=== PATIENT | male | born 1945 | race Caucasian/White ===

== ENCOUNTER 2017-09-14 17:27 | Inpatient (IN) | payer OTHER ==
[~2017-09-14] VITALS: Ht 180.3 cm; Wt 119.3 kg
[2017-09-14] MEDS ORDERED: ASPIR 8181 MG PO (18:03)
[2017-09-14] MEDS ORDERED: ATORVASTATIN CA40 MG PO (18:03)
[2017-09-14] MEDS ORDERED: LANTUS SUBQ (18:04)
[2017-09-14] MEDS ORDERED: NEURONTIN600 MG PO (18:05)
[2017-09-14] MEDS ORDERED: VOLTAREN GEL 1100 G2 TOP (18:05)
[2017-09-14] MEDS ORDERED: COZAAR 50 MG TA50 M2 PO (18:07)
[2017-09-14] MEDS ORDERED: PRILOSEC10 MG PO (18:08)
[2017-09-14] MEDS ORDERED: ALDACTONE25 MG PO (18:09)
[2017-09-14] MEDS ORDERED: CARAFATE 1 GM TA1 G1 PO (18:10)
[2017-09-14] MEDS ORDERED: TRAMADOL 50 MG50 MG PO (18:11)
[2017-09-14] MEDS ORDERED: NORVASC10 MG PO (18:11)
[2017-09-14] MEDS ORDERED: VITAMIN B-12500 MCG PO (18:12)
[2017-09-14] MEDS ORDERED: PLAVIX 75 MG TA75 M1 PO (18:12)
[2017-09-14] MEDS ORDERED: TOPROL XL100 MG PO (18:14)
[2017-09-14] MEDS ORDERED: LEVOXYL75 MCG PO (18:14)
[2017-09-14] MEDS ORDERED: KLOR-CON 1010 MEQ PO (18:15)
[2017-09-14] MEDS ORDERED: OMEGA-31000 M1 PO (18:15)
--- NOTE | 2017-09-14 22:00 | NUR ---
ASSUMED CARE OF PT UPON ADMISSION TO UNIT. PT ALERT AND ORIENTED, POLITE AND COOPERATIVE WITH CARES. PT S/P CVA. PT ANSWERED ADMISSION QUESTIONS WITHOUT DIFFICULTY, OCCASIONALLY NEEDING EXTRA TIME. PT TO BED FROM RECLINER WITH ASSIST OF 2, GAIT BELT AND WALKER. ADMISSION DATABASES COMPLETED. BED ALARM ON FOR SAFETY. HOURLY ROUNDING IN PROGRESS.
[2017-09-15 04:46] LABS: HEMATOCRIT 41.4 % (42.0-52.0); HEMOGLOBIN 13.9 gm/dL (14.0-18.0); MCH 29.5 pg (26.0-34.0); MCHC 33.6 g/dL (28.0-37.0); MCV 87.7 fL (80.0-100.0); MPV 8.5 fl. (7.2-11.1); RBC 4.72 mil/uL (4.50-6.00); RDW-CV 13.5 % (10.5-14.5); WBC 9.4 thou/uL (4.0-11.0)
[2017-09-15 05:07] LABS: CALCIUM 8.5 mg/dL (8.5-10.1); CREATININE 1.5 mg/dL (0.6-1.3); POTASSIUM 3.7 mmol/L (3.5-5.1)
[2017-09-15 08:39] VITALS: BP 139/98
--- NOTE | 2017-09-15 11:14 | NUR ---
Nutrition: Consult for new Rehab admit. Admitted with CVA - multiple mini strokes. Wt: 268#. CHO controlled diet. Pt stated he is eating well, feeling well. BG 165-147. Pt denied any concerns questions about nutrition. Appears at low risk. Will follow weekly.
--- NOTE | 2017-09-15 13:48 | NUR ---
INITIAL ASSESSMENT: PATIENT ADMITTED TO INPATIENT REHAB ON 09/14/2017 WITH A DIAGNOSIS OF CVA. PRIOR TO ADMISSION PATINET ABLE TO PERFORM NURSE EXAMINER AND DROVE. PATIENT RESIDES AT HOME WITH . PATIENTS HOME CURRENTLY HAS 20 STEPS TO THE ENTRY, 3 STEPS TO THE MAIN LEVEL WHERE THE KITCHEN, BATHROOM, AND LIVING ROOM ARE LOCATED, AND 12 STEPS UP TO WHERE THE BEDROOM AND BATHROOM ARE LOCATED. PATIENT OWNS A CANE, BUT DID NOT USE PRIOR TO ADMISSION. PATIENT HAS NO HX OF OR SNF. PATIENT PLANS TO RETURN HOME AT DISCHARGE AND MAY NEED AT WALKER AT THAT TIME. CM CONTACTED THE PATIENTS AND SHE INFORMS THAT SHE IS IN THE PROCESS OF MOVING THEIR BELONGINGS INTO A HOME BETTER SUITED TO HERS AND THE PATIENTS NEEDS AND ONE WITH NO STEPS. CM INFORMED PATIENT AND HIS OF ROLE OF CM, REHAB PROCESS, REISDENTS RIGHTS INFO, AND TEAM CONFRENCE. CM WILL REMAIN AVAILABLE TO ASSIST AND FOLLOW NEEDED. TO INFORM OF THE ROLE OF CM, REHAB
--- NOTE | 2017-09-15 17:06 | NUR ---
PT HAS PARTICIPATED WITH THERAPIES AND AMBULATES WELL WITH WALKER AND MIN ASSIST OF 1. PT NEEDS MOD ASSIST TO COME TO STANDING. PT HAS BEEN ALERT AND APPROPIATE AND DENIES PAIN OR NAUSEA. PT EATS MEALS IN DINNINGROOM. PT CALLS FOR ASSIST TO BATHROOM AND VOIDS WELL STANDING.PT HAS BEEN UP TO RECLINER THIS AFTERNOON WITH LEGS ELEVATED.PT PROGRESSESD TOWARDS GOALS AND HOURLY CONTINUES.
[2017-09-15 20:15] VITALS: BP 132/83
--- NOTE | 2017-09-15 20:15 | NUR ---
SITTING UP IN RECLINER SLEEPING. AWAKENED FOR HS REASSESSMENT AND MED PASS. DENIES DISCOMFORT. TOOK MEDS WHOLE TWO AT A TIME WITH WATER. SNACK PROVIDED.
--- NOTE | 2017-09-16 05:47 | NUR ---
WHEN ASSISTED PT TO BED LAST NIGHT PT WAS VERY LETHARGIC. REQUIRED MAX ASSIST OF TWO, GAITBELT, WALKER, CUEING TO CLINICAL EDITOR RIGHT LEG TO TRANSFER FROM RECLINER TO THE BED. PT RESTED VERY SOUNDLY FOR A FEW HOURS THEN WAS AWAKE ON/OFF THE REMAINDER OF THE NIGHT. C/O LEFT FOOT PAIN THIS AM. DIDN'T WANT ANY PAIN MED. STATES RELIEF WITH THE VOLTAREN GEL. USED URINAL X 2 DURING THE NIGHT. HOURLY ROUNDING IN PROGRESS.
[2017-09-16 07:58] VITALS: BP 160/83
--- NOTE | 2017-09-16 16:49 | NUR ---
ASSUMED CARE AT 0730 PATIENT ALERT/ORIENTED, FORGETFUL AT TIMES, NO COMPLAINTS OF PAIN THIS SHIFT, UP WITH ASSIST OF ONE AND WALKER/GAIT BELT, TO DINING ROOM FOR MEALS, HOURLY ROUNDING COMPLETED, PARTICIPATED IN ALL THERAPIES, BED/CHAIR ALARMS IN PLACE. CALL LIGHT IN REACH. CONTINUE WITH CURRENT PLAN OF CARE
[2017-09-16 20:20] VITALS: BP 153/71
--- NOTE | 2017-09-16 20:25 | NUR ---
SITTING UP IN RECLINER SLEEPING. AWAKENED FOR HS REASSESSMENT AND MED PASS. TOOK MEDS WHOLE TWO AT A TIME WITH WATER. TRANSFERRED FROM RECLINER TO BED WITH MOD ASSIST OF TWO, GAITBELT, WALKER, CUEING. STAFF LIFTED LEGS INTO BED. CALL LIGHT AND URINAL WITHIN REACH.
--- NOTE | 2017-09-17 06:20 | NUR ---
RESTED SOUNDLY UNTIL ABOUT MIDNIGHT THEN SLEPT ON/OFF. PT REQUIRED REORIENTATION TO TIME SEVERAL TIMES. PT KEPT THINKING IT WAS TIME TO GET UP AND GET DRESSED. INCONTINENT OF URINE X ONE. SONYA CARE PROVIDED. USED URINAL X 3. HOURLY ROUNDING IN PROGRESS.
[2017-09-17 08:01] VITALS: BP 152/70
--- NOTE | 2017-09-17 17:08 | NUR ---
ASSUMED CARE AT 0730 PATIENT ALERT/ORIENTED, FORGETFUL, UP WITH ASSIST OF ONE AND WALKER/GAIT BELT, TO DINING ROOM FOR MEALS, PARTICIPATED IN ALL THERAPIES, HOURLY ROUNDING COMPLETED, NO COMPLAINTS OF PAIN, BED/CHAIR ALARMS IN PLACE, CALL LIGHT IN REACH, CONTINUE WITH CURRENT PLAN OF CARE
[2017-09-17 19:35] VITALS: BP 146/67
--- NOTE | 2017-09-17 19:35 | NUR ---
SITTING UP IN RECLINER AND WATCHING TV. DENIES DISCOMFORT. TRANSFERRED FROM RECILNER TO BED WITH MOD ASSIST OF 2, GAITBELT, WALKER, CUEING. SOME LIFTING ASSIST WITH GETTING LEGS INTO BED. PT NOT MOTIVATED. NEEDS ENCOURAGEMENT TO DO MUCH HE CAN FOR HIMSELF. TOOK MEDS WHOLE TWO AT A TIME WITH WATER.
--- NOTE | 2017-09-18 05:27 | NUR ---
RESTED QUIETLY. NO COMPLAINTS VOICED. USED URINAL X 2 DURING THE NIGHT. HOURLY ROUNDING IN PROGRESS.
[2017-09-18 07:36] VITALS: BP 156/69
--- NOTE | 2017-09-18 16:56 | NUR ---
ASSUMED CARE AT 0730. ALERT ORIENTED PLEASANT COOPERATIVE. HX OF CVA WITH RT. WEI. TRANSFERS WITH SBA G BELT WALKER AND SOME CUES FOR SAFETY. USING CALL LIGHT APPROPRIATELY FOR ASSIST. BED CHAIR ALARM FOR PT. SAFETY. FEEDS SELF AND TAKES MEDS WITHOUT DIFFICULTY. APPETITE GOOD. FAMILY HERE VISITING FROM LUNCH TO LATER AFTERNOON FOOD BROUGHT FROM HOME FOR LUNCH MEAL PER . REQUESTED PRN VOLTAREN GEL L FOOT TOES AND TOP OF FOOT FOR PAIN. VOIDS PER URINAL. UP IN RECLINER IN ROOM VISITING WITH FAMILY IN ROOM AND DINING ROOM.
[2017-09-18 19:30] VITALS: BP 171/79
--- NOTE | 2017-09-19 01:55 | NUR ---
ASSUMED CARE @ 1926-09/18-MONDAY.SITS IN RECLINER W/ CHAIR ALARM ALREADY ON @ 1926.ASSISTED TO BED BY OTHER RN.HOB UP.REFUSED HEELS OFF BED.HEELS NOT RED. URINAL W/IN REACH.NURSES EMPTIES URINAL @ NIGHT.CVA W/ WEAK-RIGHT LE.PRN VOLTAREN OINT.APPLIED TO LEFT FOOT & LEFT BIG TOE @ 2129-PER PT'S REQUEST. ON HOURLY ROUNDS.
[2017-09-19 03:05] VITALS: BP 159/74
[2017-09-19 04:05] LABS: HEMOGLOBIN 13.2 gm/dL (14.0-18.0); MCH 29.7 pg (26.0-34.0); MCHC 33.7 g/dL (28.0-37.0); MCV 88.1 fL (80.0-100.0); MPV 8.4 fl. (7.2-11.1); RBC 4.43 mil/uL (4.50-6.00); RDW-CV 13.6 % (10.5-14.5); WBC 7.9 thou/uL (4.0-11.0)
[2017-09-19 04:09] LABS: CALCIUM 8.2 mg/dL (8.5-10.1); CREATININE 1.5 mg/dL (0.6-1.3); MAGNESIUM 1.4 mg/dL (1.8-2.4)
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
[2017-09-19 08:15] VITALS: BP 155/90
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
--- NOTE | 2017-09-19 16:12 | NUR ---
PT ALERT AND ORIENTATED AND CALLS FOR ASSIST NEEDS. PT AMBULATES TO BATHROOM WITH STEADY GAIT, WALKER,GAITBELT AND MIN ASSIST OF 1. PT DENIES PAIN OR NAUSEA AND TOLERATES MEALS WELL AND EATS IN DINNINGROOM. PT CONTINUES TO PROGRESS TOWARDS GOALS AND HOURLY ROUNDING CONTINUES.
[2017-09-19 20:01] VITALS: BP 174/83
[2017-09-19 21:25] VITALS: BP 148/74
--- NOTE | 2017-09-20 00:55 | NUR ---
ASSUMED CARE @ 1919-09/19-.SITS IN RECLINER WATCHING TV.CHAIR ALARM ALREADY ON @ 1919.CHIEF OPERATOR SYNTHESIS ASSISTED PATIENT TO BED @ 2019.HOB UP.BED ALARM PUT ON @ 2019.URINAL W/IN REACH.PRN VOLTAREN OINT.APPLIED TO LEFT FOOT & LEFT BIG TOE @ 2009.REFUSED TO REMOVE UNDERWEAR.PREVIOUS NIGHT.WET UNDERWEAR W/ URINE FROM USING URINAL.BP @ 2000-174/83.BP RECHECKED @ 2124-148/74.ON HOURLY ROUNDS.CHIEF OPERATOR SYNTHESIS DOING ODD HOUR ROUNDS.
--- NOTE | 2017-09-20 05:57 | NUR ---
SLEEPING SINCE 2114.USED URINAL X1 ONLY.NURSE EMPTIES URINAL @ NIGHT.TOOK JONNATHAN.ICE CREAM & 2 PACKAGES KAY CRACKERS HS SNACKS.NOTE LEFT TO HIMS IF CAN RECHECK MG LEVEL.LOW-1.4 09/19-MONDAY.
[2017-09-20 07:39] VITALS: BP 174/95
[2017-09-20 07:56] VITALS: BP 160/76
--- NOTE | 2017-09-20 15:58 | NUR ---
ASSUMED CARE AT 0730 PAIENT ALERT/ORIENTED/FORGETFUL AT TIMES, UP WITH ASSIST OF ONE AND WALKER/GAIT BELT, NO COMPLAINTS OF PAIN THIS SHIFT. PARTICIPATED IN ALL THERAPIES TODAY, TO DINING ROOM FOR MEALS, BED/CHAIR ALARMS IN PLACE, CALL LIGHT IN REACH. HOURLY ROUNDING COMPLETED. TEAM MEETING WITH RETEAM FOR NEXT WEEK, PATIENT AND INFORMED OF RECOMMENDATIONS. PATIENT UPSET ABOUT STAYING BUT UNDERSTANDS HE STILL HAS SOME IMPROVEMENTS TO BE MADE AND IS TRYING TO SELL HOUSE WITH PLANS OF MOVING TO SENIOR APARTMENTS. CONTINUE WITH CURRENT PLAN OF CARE
--- NOTE | 2017-09-20 16:45 | NUR ---
SW called and spoke with pt Evelina Cheung to review team conference summary. Plan for pt to remain on rehab to continue therapy for at least another week and for team to reassess pt length of stay during team conference next Monday. Pt understanding and plans to continue to prepare home for pt as well as get the furnace fixed. SW spoke with pt and reviewed team conference summary and plan with pt. Pt was hopeful to be able to return home sooner, pt wondered why he couldn't even dc tomorrow. SW explained team's recommendations and provided encouragement. SW to continue to follow to assist with safe dc planning. Team reported that pt needs min assist with problem solving and memory, is a fall risk/loss of balance, and pt needing stand by assist to min assist with LB dressing, SBA with toileting and transfers, grooming, and UB dressing; mod I bed mobility, contact guard assist with walking 150 ft with a FWW and 12 stairs.
[2017-09-20 20:26] VITALS: BP 143/77
--- NOTE | 2017-09-21 01:28 | NUR ---
ASSUMED CARE @ 1929-09/20-MON.SITS IN RECLINER READING BOOK.CHAIR ALARM ALREADY ON @ 1929.HAND CARPET OR RUG LAYER HELPER & PEDAL PUSHES-BOTH EQUALLY STRONG.ASSISTED TO BED BY SERVICE DELIVERY MANAGER @ 2019.HOB UP.URINAL W/IN REACH.BED ALARM PUT ON @ 2019.PRN VOLTAREN OINT.APPLIED TO LEFT FOOT & LEFT BIG TOE @ 2134.NURSE EMPTIES URINAL @ NIGHT.ON HOURLY ROUNDS.SERVICE DELIVERY MANAGER DOING ODD HOUR ROUNDS.
--- NOTE | 2017-09-21 05:37 | NUR ---
SLEEPING SINCE 2129.USED URINAL X2.TOOK ONLY VANILLA ICE CREAM HS SNACK. AWAKE BRIEFLY ONCE @ 0000-09/21--TO USE URINAL.
[2017-09-21 07:39] VITALS: BP 142/85
--- NOTE | 2017-09-21 18:06 | NUR ---
PT HAS PARTICIPATED WITH THERAPIES AND CALLS FOR ASSIST WITH AMBULATION. PT AMBULATES WITH WALKER AND MIN ASSIST OF 1 WITH GAITBELT. PT DENIES PAIN OR NAUSEA AND EATS MEALS IN DINNINGROOM. PT VOIDS WELL PER URINAL. PT IS ALERT AND ORIENTATED AND CONTINUES TO PROGRESS TOWARDS GOALS, HOURLY ROUNDING CONTINUES.
[2017-09-21 21:27] VITALS: BP 151/81
--- NOTE | 2017-09-22 05:09 | NUR ---
ASSUMED CARES AT 1920. PT ALERT AND ORIENTED. PLEASANT. TAKES PILLS WHOLE WITHOUT ISSUES. DENIES ANY PAIN. HE IS A MIN ASSIST WITH GAIT BELT AND WALKER. USED URINAL AND STAFF EMPTIED. DID HAVE SOME CONFUSION IN MIDDLE OF NIGHT. WANTING TO GET UP AND GET DRESSED. PT INFORMED THAT WAS NOT YET MORNING AND WENT BACK TO SLEEP. SLEPT MOST OF THE NIGHT. USED CALL LIGHT. BED ALARM ON.
[2017-09-22 07:49] VITALS: BP 143/93
[2017-09-22 20:09] VITALS: BP 148/78
--- NOTE | 2017-09-23 05:15 | NUR ---
ASSUMED CARES AT 1920. PT ALERT AND ORIENTED. PLEASANT. HE IS A MIN ASSIST WITH GAIT BELT AND WALKER. PT USED URINAL AND RN EMPTIED. VOLTAREN CREAM APPLIED TO RIGHT ANKLE AND TOE. PT SLEPT WELL MOST OF THE NIGHT. CALL LIGHT IN REACH AND BED ALARM ON.
[2017-09-23 07:30] VITALS: BP 142/82
--- NOTE | 2017-09-23 16:11 | NUR ---
ASSUMED CARE AT 0730 PATIENT ALERT/ORIENTED, DOES USE CALL LIGHT, BUT DOES NOT WAIT FOR STAFF TO HELP, REEDUCATE ON WAITING FOR STAFF FOR SAFETY REASON/FALL PRECAUTIONS. UP WITH ASSIST OF ONE AND GAIT BELT, THERAPY ADVANCED TO NO WALKER, UP WITH STANDBY WITH NO DEVICES. HOURLY ROUNDING COMPLETED, TO DINING ROOM FOR MEALS, PARTICIPATED IN ALL THERAPIES. BED/CHAIR ALARMS IN PLACE, CALL LIGHT IN REACH, CONTINUE WITH CURRENT PLAN OF CARE
[2017-09-23 20:18] VITALS: BP 167/91
--- NOTE | 2017-09-23 20:25 | NUR ---
RESTING QUIETLY IN BED AND WATCHING TV. DENIES PAIN. TOOK MEDS WHOLE WITH WATER. SNACK PROVIDED. URINAL AND CALL LIGHT WITHIN REACH. EARLIER METAL BURNISHER HEARD THE CHAIR ALARM AND FOUND PT IN THE BATHROOM. BED ALARM ON FOR PT'S SAFETY.
--- NOTE | 2017-09-24 05:27 | NUR ---
RESTED QUIETLY ALL NIGHT. NO COMPLAINTS VOICED. HOURLY ROUNDING IN PROGRESS.
[2017-09-24 07:59] VITALS: BP 144/79
--- NOTE | 2017-09-24 15:57 | NUR ---
PT ALERT AND ORIENTATED AND CALLS FOR ASSIST WITH AMBULATION. PT AMBULATES WITH STEADY GAIT, GAITBELT AND SBA. PT DENIES PAIN OR NAUSEA. PT TOLERATES MEALS AND EATS IN DINNINGROOM. PT IS CONTINENT OF B+B AND CALLS FOR ASSIST TO BATHROOM. PT HOPEING TO GO HOME LATER THIS WEEK. PT PROGRESSES TOWARDS GOALS AND HOURLY ROUNDING CONTINUES.
--- NOTE | 2017-09-24 19:45 | NUR ---
SITTING UP IN RECLINER WATCHING TV. TOOK MEDS WHOLE WITH WATER. TRANSFERRED TO BED WITH CGA, GAITBELT, MINIMAL ASSIST WITH LEGS GETTING INTO BED. DENIES PAIN.
[2017-09-24 20:13] VITALS: BP 147/72
--- NOTE | 2017-09-25 05:06 | NUR ---
RESTED ON/OFF. VOLTAREN CREAM APPLIED TO RIGHT FOOT PER REQUEST FOR C/O RIGHT FOOT PAIN. TYLENOL ALSO GIVEN. USED URINAL X TWO DURING THE NIGHT. HOURLY ROUNDING IN PROGRESS.
[2017-09-25 07:46] VITALS: BP 156/81
--- NOTE | 2017-09-25 17:50 | NUR ---
ASSUMED CARE AT 0730 PATIENT ALERT/ORIENTED, NO COMPLAINTS OF PAIN THIS SHIFT, PARTICIPATED IN ALL THERAPIES, UP WITH ONE AND GAIT BELT/STANDY ASSIST. TO DINING ROOM FOR MEALS. HOURLY ROUNDING COMPLETED. BED/CHAIR ALARMS IN PLACE, CALL LIGHT IN REACH. CONTINUE WITH CURRENT PLAN OF CARE
--- NOTE | 2017-09-25 19:50 | NUR ---
SITTING UP IN RECLINER WATCHING TV. TOOK MEDS ONE AT TIME WHOLE WITH WATER. SNACK PROVIDED.
[2017-09-25 20:16] VITALS: BP 141/76
--- NOTE | 2017-09-26 05:20 | NUR ---
RESTED QUIETLY. USED URINAL X 2 DURING THE NIGHT. VOLATAREN CREAM APPLIED TO LEFT FOOT PER REQUEST WITH RELIEF. HOURLY ROUNDING IN PROGRESS.
[2017-09-26 07:00] VITALS: BP 162/93
--- NOTE | 2017-09-26 10:36 | NUR ---
SW called pt to follow up with dc planning and prepare for team conference in case pt has any questions, etc. Pt also continues to express desire to return home soon. Pt did not answer so SW left a message requesting call back. SW to continue to follow to assist with safe dc planning.
--- NOTE | 2017-09-26 15:47 | NUR ---
pt has called for sba to transferr and to ambulate to bathroom. pt has steady gait and comes to standing pushiong from arms of chair. pt denies pain or nausea and tolerates meals eating in dinningroom. pt remains alert and orientated and hopes to go home soon. pt progresses towards goals and hourly rounding continues.
[2017-09-26 20:55] VITALS: BP 155/82
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
[2017-09-27 08:12] VITALS: BP 160/85
--- NOTE | 2017-09-27 14:05 | NUR ---
SW met with pt and pt to review team conference summary. SW relayed team's report that pt is modified independent with transfers, walking 200 ft without an assistive device, supervision with 12 stairs, stand by assist to min assist transfering out of bed in the morning with OT, and mod I to supervision with all other ADL tasks, supervision level with all cognitive tasks; barriers motor processing, attention to task, pt needs extra time to complete some tasks to be safe. SW explained that given the barriers and the possible min assist with transfers at times with OT, the team recommends pt continue rehab therapies for a few more days and dc home with on Monday. Pt and pt expressed wanting pt to dc on Monday, stating that pt will be available at all times to assist pt, that pt will remain on one level and sponge bathe at the sink for safety and they will wait for HH services to assist with safety in the bathroom. SW discussed pt not in agreement with needing to remain on rehab until Monday and wanting to dc Monday instead. Pt and doctor spoke about plans and pt seemed to agree that pt would benefit from remaining on rehab for a few more days but was not sure that pt would agree. SW to continue to follow to assist with safe dc planning.
[2017-09-27 14:58] LABS: HEMATOCRIT 41.1 % (42.0-52.0); HEMOGLOBIN 13.9 gm/dL (14.0-18.0); MCH 29.8 pg (26.0-34.0); MCHC 33.8 g/dL (28.0-37.0); MCV 88.1 fL (80.0-100.0); MPV 8.2 fl. (7.2-11.1); RBC 4.66 mil/uL (4.50-6.00); RDW-CV 13.9 % (10.5-14.5); WBC 9.7 thou/uL (4.0-11.0)
[2017-09-27 15:13] LABS: ALBUMIN 3.2 g/dL (3.4-5.0); CALCIUM 8.2 mg/dL (8.5-10.1); CREATININE 1.5 mg/dL (0.6-1.3); POTASSIUM 4.2 mmol/L (3.5-5.1); TOTAL BILIRUBIN 0.4 mg/dL (<0.1-1.0); TOTAL PROTEIN 6.9 g/dL (6.4-8.2)
--- NOTE | 2017-09-27 17:03 | NUR ---
ASSUMED CARE AT 0730 PATIENT ALERT/ORIENTED, NO COMPLAINTS OF PAIN THIS SHIFT. UP WITH ONE/GAIT BELT, STANDBY ASSIST. PARTICIPATED IN ALL THERAPIES TODAY, TO DINING ROOM FOR MEALS, HOURLY ROUNDING COMPLETED. BED/CHAIR ALARMS IN PLACE, CALL LIGHT IN REACH. TEAM TODAY WITH D/C ON MONDAY. CONTINUE WITH CURRENT PLAN OF CARE
[2017-09-27 19:30] VITALS: BP 164/87
--- NOTE | 2017-09-27 19:45 | NUR ---
PT PULLED CALL LIGHT IN BATHROOM BUT DIDN'T WAIT FOR STAFF. PT AT SINK DOING ORAL CARES - REMOVING DENTURES. AMBULATES WITH SBA, GAITBELT. GOT SELF DRESSED FOR BED. TOOK MEDS WHOLE WITH WATER. SNACK PROVIDED. URINAL AND CALL LIGHT WITHIN REACH.
--- NOTE | 2017-09-28 05:17 | NUR ---
RESTED ON/OFF. CALLED AT 0230 THINKING IT WAS TIME TO GET UP FOR THE DAY. REORIENTED TO TIME. USED URINAL X ONE DURING THE NIGHT. HOURLY ROUNDING IN PROGRESS.
[2017-09-28 07:46] VITALS: BP 137/82
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
--- NOTE | 2017-09-28 18:21 | NUR ---
ASSUMED CARE AT 0730 PATIENT ALERT/ORIENTED, VERY IMPULSIVE, WILL USE CALL LIGHT BUT IMMEDIATELY GETS UP BEFORE STAFF CAN ASSIST, REEDUCATE ON FALL PRECAUTIONS BUT PATIENT STATES HE CAN SAFELY WALK. UP WITH STANDBY ASSIST, NO COMPLAINTS OF PAIN. PARTICIPATED IN ALL THERAPIES, TO DINING ROOM FOR MEALS. HOURLY ROUNDING COMPLETED, BED/CHAIR ALARMS IN PLACE, CALL LIGHT IN REACH.
[2017-09-28 20:09] VITALS: BP 156/78
--- NOTE | 2017-09-28 22:17 | NUR ---
ASSUMED CARE AT 1930. PATIENT S/P CVA. SITTING IN RECLINER UNTIL HS. HX OF IMPULSIVENESS. UP WITH SBA, GAIT BELT, NO ASSISTIVE DEVICE. AMB TO TOILET TO VOID. REMOVED AND CARED FOR OWN TEETH. TAKES PILLS WITH WATER WITHOUT DIFF. COOPERATED WITH REQUESTS THUS FAR OF WAITING FOR ASSIST FOR GETTING UP. CALL LITE IN REACH. BED ALARM ON. HOURLY ROUNDS CONTINUE.
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
--- NOTE | 2017-09-29 06:09 | NUR ---
SLEPT MOST OF THE NIGHT EXCEPT TO VOID. NO FURTHER EPISODES OF LOSING BALANCE DESCRIBED IN PREVIOUS NOTED. TURNS SELF. NO C/O PAIN. HOURLY ROUNDING CONTINUES. BED ALARM ON. CALL LITE IN REACH.
[2017-09-29 07:30] VITALS: BP 146/84
[2017-09-29 08:03] VITALS: BP 146/84
--- NOTE | 2017-09-29 18:40 | NUR ---
AM ASSESSMENT AND VITAL SIGNS COMPLETED DOCUMENTED. PT HAS BEEN AGREEABLE TO STAYING FOR MORE THERAPY AND IS NOW IN THE [place] IN ANTICIPATION OF DISCHARGE ON MONDAY. PT's WILL BE STAYING ONE OR TWO NIGHTS. PT WILL NOT BE MOD I AT THIS POINT. FALL PRECAUTIONS AND HOURLY ROUNDING CONTINUE.
[2017-09-29 20:33] VITALS: BP 164/87
--- NOTE | 2017-09-30 02:37 | NUR ---
ASSUMED CARE @ 1949-09/29-MONDAY.SITS IN RECLINER LISTENING TO MUSIC.CHAIR ALARM ALREADY ON @ 1949.ASSISTED TO BED BY FLOOR SPACE ALLOCATOR @ 2014.HOB UP.BED ALARM PUT ON @ 2019.REFUSED TO REMOVE PJ PANTS SO CAN USE URINAL W/EASE @ NIGHT.BOTH HAND IMPORT AND EXPORT CLERK & PEDAL PUSHES EQUALLY STRONG.PRN VOLTAREN OINT.APPLIED TO LEFT FOOT & LEFT BIG TOE @ 2043.ON HOURLY ROUNDS.FLOOR SPACE ALLOCATOR DOING ODD HOUR ROUNDS.
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
[2017-09-30 08:00] VITALS: BP 162/77
--- NOTE | 2017-09-30 13:48 | NUR ---
AM ASSESSMENT AND VITAL SIGNS COMPLETED DOCUMENTED. PT HAS BEEN COOPERATIVE WITH STAFF BUT STATES HE IS NOT HAPPY ABOUT STILLING BEING HERE. PT HAS BEEN SUPERVISION FOR SAFETY WITH AMBULATING AND TOILETING TODAY, NO C/O DISCOMFORT. FALL PRECAUTIONS AND HOURLY ROUNDING OBSERVED.
[2017-09-30 20:36] VITALS: BP 159/78
--- NOTE | 2017-10-01 05:32 | NUR ---
ASSUMED CARE @ 1939-09/30-SAT.SITS IN RECLINER WATCHING TV.CHAIR ALARM ALREADY ON @ 1939.PRN EMILY OINT.APPLIED TO LEFT FOOT & LEFT BIG TOE @ 1951.ASSISTED TO BED @ 2014 BY SALES PLANNING MANAGER.WEARS ONLY UNDERWEAR & CONSENTED TO TAKE OFF PANTS SO CAN HAVE EASE IN USING URINAL @ NIGHT W/OUT WETTING PANTS. HOB UP.URINAL W/IN REACH.BED ALARM PUT ON @ 2024.ON HOURLY ROUNDS.SALES PLANNING MANAGER DOING ODD HOUR ROUNDS.
--- NOTE | 2017-10-01 05:35 | NUR ---
SLEEPING SINCE 2200.USED URINAL X1 ONLY.NURSE EMPTIES URINAL @ NIGHT.TOOK ALL VANILLA ICE CREAM HS SNACKS.
--- NOTE | 2017-10-01 06:27 | NUR ---
USED URINAL #2 @ 0600.THEN,BRP BUT NO BM.WANTS TO SIT IN RECLINER @ 0610.PJ PANTS PUT ON.VERBALIZED DESIRE TO GO HOME.LAST BM-09/29-MONDAY.PRUNE JUICE GIVEN @ 0620.SUGGESTED TO PUT ON PULL UPS BUT REFUSED BY PATIENT.
[2017-10-01 08:26] VITALS: BP 163/95
--- NOTE | 2017-10-01 17:53 | NUR ---
AM ASSESSMENT AND VITAL SIGNS COMPLETED DOCUMENTED. PT AMBULATED IN THE HALLS X5 WITH STAND BY ASSIST OF NURSING, GOOD TOLERANCE. PT STATES HE IS READY TO GO HOME WITH HIS . NO ACUTE DISTRESS, FALL PRECAUTIONS AND HOURLY ROUNDING CONTINUE.
[2017-10-01 21:41] VITALS: BP 141/88
--- NOTE | 2017-10-02 01:47 | NUR ---
ASSUMED CARE 2 1929-10/01-MONDAY.SITS IN RECLINER WATCHING TV.CHAIR ALARM ALREADY ON @ THIS TIME.HAND RELIGIOUS LEADER & PEDAL PUSHES-BOTH EQUALLY STRONG.PRN VOLTAREN OINT.APPLIED TO LEFT FOOT & LEFT BIG TOE @ 2014.DID OWN DENTURE CARE @ SINK W/ SBA.BECOMES FATIGUE,WHEEZY W/ SOA AFTER AMBULATING FROM SINK TO BED.HOB UP.URINAL W/IN REACH.BED ALARM PUT ON @ 2024.ON HOURLY ROUNDS. INSIDE BARREL LATHE OPERATOR DOING ODD HOUR ROUNDS.
--- NOTE | 2017-10-02 05:33 | NUR ---
SLEEPING SINCE 2200.USED URINAL X1 DURING NIGHT.REFUSED HS SNACKS.LAST BM 09/29-MONDAY.HAD PRUNE JUICE YESTERDAY @ 0600-BUT NO BM YET.PLAN TO GIVE PRN MOM MIXED IN PRUNE JUICE @ 0600.
[2017-10-02 08:00] VITALS: BP 173/87
--- NOTE | 2017-10-02 16:50 | NUR ---
AMBERLY followed up with pt and pt regarding dc planning for Monday. Pt to dc home with and HH services to follow. No assistive device needed for mobility at this time. Pt said she was glad to speak with therapists today to receive their recommendations on equipment and safety in the home and the pt and pt look forward to HH services as well. AMBERLY sent referral to pt/family preference [facility] and will follow up to send final orders/med list upon dc. No other needs expressed at this time.
--- NOTE | 2017-10-02 18:41 | NUR ---
ASSUMMED CARE OF PT AT 0730, PT ALERT, FORGETFUL, IMPULSIVE, TRANSFERS WITH SBA/MIN ASSIST GB, PT DOES MIS STEP AT TIMES, PT VOIDS PER TOILET, PT USES CALL LIGHT BUT STANDS BEFORE STAFF IN ROOM AT TIMES, PT TAKING FOOD AND FLUIDS WELL, PT DENIES PAIN, PT HERE FOR FAMILY TRAINING, AND ORDER OBTAINED THAT IF FEELS COMFORTABLE SHE MAY HELP HIM UP IN ROOM DURING NIGHT, SHE IS SPENDING NIGHT WITH PT, PT HAS MANY QUESTIONS REGARDING DISCHARGE TOMORROW, QUESTIONS ANSWERED, PARTICIPATED IN ALL THERAPIES, HOURLY ROUNDING COMPLETED ASSESSMENT COMPLETE, WILL CONTINUE TO MONITER.
[2017-10-02 20:23] VITALS: BP 172/86
--- NOTE | 2017-10-03 05:53 | NUR ---
ASSUMED PT CARE AT 1930, PT OFF FLOOR AT SHIFT CHANGE FOR CT ANGIOGRAM OF CHEST. PT RETURNED TO FLOOR, ALERT AND ORIENTED, AT BEDSIDE. PT WANTED IV OUT OF RIGHT AC, GAVE PT OPTION THAT IV COULD BE REMOVED BUT THE POSSIBILTY THAT ANOTHER WOULD HAVE TO BE PLACED. PT CHOSE TO KEEP IV OVERNIGHT, HUB PADDED AND SITE COVERED WITH KERLIX. ANGIOGRAM RETURNED NEGATIVE, NO EVIDENCE OF PULMONARY EMBOLISM. PT TO BED, NO FURTHER COMPLAINTS OR NEEDS. NO SOB. PT SLEPT WELL OVERNIGHT. ANTICIPATING DISCHARGE TODAY. CALL LIGHT AND FREQUENTLY USED ITEMS WITHIN REACH. HOURLY ROUNDING COMPLETED.
[2017-10-03 08:34] VITALS: BP 126/88
[2017-10-03] MEDS ORDERED: OMEPRAZOLE40 MG PO (13:59)
[2017-10-03 14:02] VITALS: BP 126/88
[2017-10-03 14:29] VITALS: BP 126/88
--- NOTE | 2017-10-03 14:30 | NUR ---
AMBERLY faxed referral and final orders to [facility] HH services. Pt to dc home with today.
--- NOTE | 2017-10-03 15:24 | NUR ---
ASSUMMED CARE OF PT AT 0730, PT ALERT AND ORIENTED, IMPULSIVE FORGETFUL AT TIMES, PT TRANSFERS WITH SUPERVISION WITH AND GB, THIS SHIFT, PT TAKING FOOD AND FLUIDS WELL, DENIES PAIN, PARTICIPATED IN ALL THERAPIES, HOURLY ROUNDING COMPLETED, ASSESSMENT COMPLETE, NO SOA REPORTED THIS SHIFT, VSS, ORDERS OBTAINED FOR DISCHARGE, DISCUSSED DISCHARGE ORDERS WITH AND PT, DISCUSSED FOLLOW UP APPTS, WHEN TO CALL PHYSICIAN, MEDICATIONS, SCRIPT GIVEN FOR LIPITOR, HOME HEALTH, DIET, MONITORING OF WEIGHT, QUESTIONS ANSWERED, PT DISCHARGED PER WHEELCHAIR TO MAIN ENTRANCE WITH BELONGINGS.
--- NOTE | 2017-10-03 15:43 | PLAN ---
[address] [address] REHAB UNIT PLAN OF CARE Name: MARY BARROS Room: [address]#: [id number] Admission: 09/14/17 Attend Phys: Kim Bah DO Discharge: 10/03/17 Date of : 47 Report #: [id number] THIS REPORT FOR: //name// CC: Kim Bah Agustin Schofield This is a 72-year-old left-hand dominant male presenting to inpatient rehabilitation to facilitate safe discharge home, status post left-sided cerebrovascular accident, located in the left thalamus as well as bilateral MCA and FINAL INSPECTOR stenosis. He was also diagnosed with a left-sided pneumonia and is being treated for that. He does have residual right upper and lower extremity hemiparesis, receptive and expressive aphasia as well as dysphagia. There is some mild cognitive impairment as well. MEDICAL PROGNOSIS: Good. REHABILITATIVE PROGNOSIS: Good. ESTIMATED LENGTH OF STAY: 16-18 days, with discharge disposition to the home setting. Previous level of function was modified independent to independent with activities of daily living. Current level of function is minimum to moderate assistance of 1-2 depending on therapy, activity and time of day. Physical therapy will see the patient 60-90 minutes per day, 5 days per week, working on upper and lower body strength, balance, coordination, navigation. Occupational therapy will work with the patient 60-90 minutes per day, 5 days per week, working on upper and lower body strength, balance, coordination, navigation, bathing, dressing and toileting. Speech language pathology will work with the patient 60-90 minutes per day, 5 days per week, working on cognitive impairment, aphasia expressive and receptive as well as dysphagia. This is an overall plan of care, it may change from time to time. We will team him weekly and make changes to plan of care as needed. <ELECTRONICALLY SIGNED> By: Kim Bah DO 10/03/17 1543 [id number] [id number] Bah DO /nt
--- NOTE | 2017-10-03 15:43 | H ---
[address] [address] HISTORY AND PHYSICAL Name: MARY BARROS Room: [address]#: [id number] Admission: 09/14/17 Attend Phys: Kim Bah DO Discharge: 10/03/17 Date of : 47 Report #: [id number] THIS REPORT FOR: //name// CC: Kim Wagnerew Chandu DATE OF SERVICE: 09/14/2017 HISTORY OF PRESENT ILLNESS: This is a 72-year-old left-hand dominant male who presented to [facility] on 09/09/2017 with slurred speech, confusion, fatigue and right-sided upper and lower extremity hemiparesis. He also presented with left-sided pneumonia. MRI did also show lacunar infarct in the left thalamus. MRI showed bilateral MCA and OTHER WOOD PROCESSING MACHINE OPERATOR stenosis likely secondary to poorly controlled diabetes. He has been participating in therapies, physical and occupational therapy as well as speech and language pathology for both aphasia and dysphagia. He is also presenting with some signs of encephalopathy and is completing his treatment for pneumonia. He has had no significant changes since the preadmission screening. Previous level of function was independent to modified independent with activities of daily living. Current level of function is minimum assistance to moderate assistance of 1-2 depending on therapy, activity and time of day. He does have mild impairment of comprehension, expression, social interaction, problem solving and memory as well as mild expressive aphasia and mild receptive aphasia and a moderate expressive aphasia. Estimated length of stay is 16-18 days with discharge disposition to the home setting where he has supportive family including his spouse and a daughter that lives nearby. 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 PAST SURGICAL HISTORY: Previous coronary angioplasty with stents, colectomy, tonsillectomy and cholecystectomy. ALLERGIES: CODEINE. SOCIAL HISTORY: He is a former smoker, occasional alcohol, no illicit drug use. FAMILY HISTORY: Diabetes and stroke as well as heart disease. REVIEW OF SYSTEMS: A 14-point review of systems is done today, is negative except as mentioned in the HPI. Specifically, no fever, chest pain, shortness of breath, abdominal pain or distention, change in bowel or change in bladder. PHYSICAL EXAMINATION: GENERAL: Alert, up in the chair. No family [place] [address] HISTORY AND PHYSICAL Name: MARY BARROS Room: [address]#: [id number] Admission: 09/14/17 Attend Phys: Kim Bah DO Discharge: 10/03/17 Date of : 47 Report #: [id number] distress. VITAL SIGNS: Reviewed and are stable. HEENT: Atraumatic. Little bit of right-sided facial droop is still present. NECK: Supple. LUNGS: Symmetric expansion. ABDOMEN: Soft. SKIN: Warm and dry. MUSCULOSKELETAL: No clubbing, cyanosis or edema. NEUROLOGIC: He has 5/5 strength in left upper and lower extremity. Again, he has some facial droop. Otherwise, cranial nerves are intact. He does have 3/5 strength in the right upper extremity and 3/5 strength in the right lower extremity with some discoordination and mild sensory changes. ASSESSMENT: 1. Left hand dominant male with right-sided lacunar cerebrovascular accident with residual right upper and lower extremity hemiparesis; aphasia, both receptive and expressive; swallowing difficulty, mild to moderate. 2. Multiple medical comorbidities requiring daily medical care including uncontrolled diabetes, hypertension. 3. Alterations in activities of daily living. PLAN: 1. Admission to inpatient rehabilitation to facilitate safe discharge home. 2. PT, OT, speech, language, case management, nursing to make evaluations and recommendations. 3. Plan of care is pending and will team him weekly. 4. Medication reconciliation has been completed. <ELECTRONICALLY SIGNED> By: Kim Bah DO 10/03/17 1543 [id number] Bah DO /nt
--- NOTE | 2017-10-05 06:06 | NUR ---
RECEIVED PHONE CALL FROM PATIENT'S . SHE REPORTS THAT PATIENT HAS CONGESTION, COUGH AND HIS BLOOD PRESSURE IS ELEVATED TO 180/XX. SHE ASKED WHAT MEDICATIONS HE SHOULD TAKE FOR THIS. THIS NURSE RESPONDED THAT WE DON'T KEEP HIS CHART UP HERE AFTER DISCHARGE, AND THAT THE PATIENT IS TO FOLLOW UP WITH HIS PRIMARY CARE PROVIDER AFTER DISCHARGE. THIS NURSE ADVISED TO SEEK MEDICAL CARE, THAT HIS BLOOD PRESSURE IS ELEVATED AND HE NEEDS EVALUATION, AND THE ER PHYSICIANS WOULD BE ABLE TO ACCESS HIS CHART. VERBALIZED UNDERSTANDING.
--- NOTE | 2017-11-15 13:45 | D ---
[facility] [address] [place] [address] DISCHARGE SUMMARY Name: MARY BARROS Room: [address] .R.#: [id number] Admission: 09/14/17 Attend Phys: Kim Bah DO Discharge: 10/03/17 Date of : 47 Report #: [id number] THIS REPORT FOR: //name// CC: Kim Wagnerew Chandu DATE OF SERVICE: 10/03/2017 DISCHARGE DIAGNOSES: Right cerebrovascular accident with upper and lower extremity hemiparesis, aphasia, and dysphagia. Discharge disposition is to home with supportive family with home health PT, OT and nursing. Follow with primary care physician within 1 week and neurology within 4 weeks. Medications were reviewed, reconciled by myself and are available in the MAR. Notifications for physician were given. DISCHARGE PHYSICAL EXAMINATION: GENERAL: Alert, oriented, in no apparent distress. VITAL SIGNS: Reviewed and are stable. HEENT: Head atraumatic, normocephalic. Pupils are equal, round, and reactive. ABDOMEN: Soft, nontender, and nondistended. NEUROLOGIC: hand weakness, right upper extremity hemiparesis, right lower extremity hemiparesis, and aphasia. SKIN: Warm and dry. No rashes or lesions are noted. MUSCULOSKELETAL: No clubbing, cyanosis, or edema. <ELECTRONICALLY SIGNED> By: Kim Bah DO 11/15/17 1345 [id number] Bah DO /billy
== END 2017-10-03 15:10 | disposition home health service (06) | DRG 64 ==
LOC: M.REH 17:27
PROVIDERS: Family Medicine; Internal Medicine; ADMIT Physical Medicine & Rehabilitation
DX: I63.9 Cerebral infarction, unspecified (principal); J18.9 Pneumonia, unspecified organism; G81.91 Hemiplegia, unspecified affecting right dominant side; I10 Essential (primary) hypertension; I25.10 Atherosclerotic heart disease of native coronary artery without angina pectoris; E03.9 Hypothyroidism, unspecified; E78.5 Hyperlipidemia, unspecified; K21.9 Gastro-esophageal reflux disease without esophagitis; K59.00 Constipation, unspecified; E11.65 Type 2 diabetes mellitus with hyperglycemia; Z95.5 Presence of coronary angioplasty implant and graft; Z90.49 Acquired absence of other specified parts of digestive tract; Z88.5 Allergy status to narcotic agent; Z87.891 Personal history of nicotine dependence